=== PATIENT | female | born 1950 | race Caucasian/White ===

== ENCOUNTER 2017-05-20 17:02 | Emergency (ER) | payer MEDICARE ==
[~2017-05-20 17:02] MED LIST: Sodium Chloride 0.9% 1,000 ML BAG ONE; Sodium Chloride 0.9% 100 ML BAG ONE
[2017-05-20] MEDS ORDERED: Ibuprofen 600 MG TAB ONE ×2 (17:32→17:36)
[2017-05-20 17:55] LABS: #Eosinphils 0.1 thou/uL (0.0-0.7); #Lymphocytes 1.6 thou/uL (1.20-3.40); #Monocytes 1.6 thou/uL (0.11-0.59); %Basophils 0.3 % (0.0-1.0); %Eosinophils 0.6 % (0.0-10.0); %Lymphocytes 9.2 % (21.0-51.0); %Monocytes 9.3 % (0.0-10.0); %Neutrophils 80.6 % (42.0-75.0); Hemoglobin 13.1 g/dL (12.0-16.0); Mean Corpuscular HGB CONC 31.3 g/dL (32.0-36.0); Mean Corpuscular Hemoglobin 29.3 pg (27.0-31.0); Mean Corpuscular Volume 93.5 fl (81.0-99.0); Mean Platelet Volume 7.1 fL (7.4-10.4); Platelet Count 261 thou/uL (130-400); RBC Distribution Width 12.9 % (11.5-14.5); Red Blood Cell (RBC) Count 4.47 mill/uL (4.20-5.40); White Blood Cell (WBC) Count 17.4 thou/uL (4.8-10.8)
[2017-05-20 18:08] LABS: ALT (SGPT) 25 U/L (8-55); AST (SGOT) 23 U/L (5-34); Albumin 3.9 g/dL (3.4-4.8); Alkaline Phosphatase 95 U/L (40-150); Anion Gap 18 mmol/L (10-20); BUN (Urea Nitrogen) 15 mg/dL (9.8-20.1); Bilirubin, Total 0.4 mg/dL (0.2-1.2); Calc. Creatinine Clearance 0 mL/min (70-130); Calcium 10.5 mg/dL (7.8-10.44); Carbon Dioxide 22 mmol/L (23-31); Chloride 99 mmol/L (98-107); Estimated GFR-MDRD 70; Globulin 4.1 g/dL (2.4-3.5); Glucose 128 mg/dL (80-115); Potassium 3.7 mmol/L (3.5-5.1); Sodium 135 mmol/L (136-145)
[2017-05-20] MEDS ORDERED: cefTRIAXone\\ROCEPHIN 1 GM VIAL ONE (18:15)
[2017-05-20] MEDS ORDERED: Azithromycin 500 MG VIAL ONE (18:15)
--- NOTE | 2017-05-20 18:43 | RAD ---
RADIOGRAPH CHEST 2 VIEWS: Date: 05/20/17 Time: 5:23 p.m. HISTORY: 66-year-old female with acute dyspnea. COMPARISON: 10/19/14 FINDINGS: There is a new finding of irregular air space densities in the left upper lobe with heterogeneous at tenuation. Uncertain whether or not there is cavitation. Again noted is the hyperinflation consisten t with COPD. No pleural effusion or pneumothorax. Narrowing of the cardiomediastinal silhouette by the hyperinflation. IMPRESSION: 1. Left upper lobe pneumonia. It is uncertain whether this is due to conventional bacteria or t uberculosis. 2. Emphysema. BRIONNA [] POS: SHELBY
[2017-05-20 18:54] LABS: CKMB 1.1 ng/mL (0-6.6); Troponin I Less than 0.010 ng/mL (< 0.028)
== END 2017-05-20 21:50 | disposition home or self-care (01) ==
LOC: MADERS 17:02
DX: J44.0 Chronic obstructive pulmonary disease with (acute) lower respiratory infection (principal); J18.9 Pneumonia, unspecified organism; E78.5 Hyperlipidemia, unspecified; Z87.891 Personal history of nicotine dependence; Z79.82 Long term (current) use of aspirin; Z79.891 Long term (current) use of opiate analgesic; Z79.899 Other long term (current) drug therapy
CPT/HCPCS: 71020; 80053; 82553; 83605; 83880; 84484; 85025; 87040; 93005; 96365; 96367; J0456; J0696; J7050

== ENCOUNTER 2017-09-17 06:26 | Emergency (ER) | payer MEDICARE ==
[2017-09-17] MEDS ORDERED: Fentanyl 100 MCG/2 ML VIAL ONE ×2 (07:01→08:55)
[2017-09-17] MEDS ORDERED: Ondansetron HCl/PF 4 MG/2 ML Vial ONE (07:02)
[2017-09-17] MEDS ORDERED: Cefepime 1 GM VIAL ONE (07:02)
[2017-09-17 07:29] LABS: Bilirubin Negative (Negative); Blood, Urine Negative (Negative); Clarity Clear (Clear); Glucose, Urine (Dipstick) Negative (Negative); Leukocyte Negative (Negative); Nitrite Negative (Negative); Protein, Urine (Dipstick) Negative (Neg-Trace); Urobilinogen 0.2 mg/dL (0.2-1.0); pH, Urine 6.5 (5.0-9.0)
[2017-09-17 07:40] LABS: ALT (SGPT) 28 U/L (8-55); AST (SGOT) 28 U/L (5-34); Albumin 3.9 g/dL (3.4-4.8); Alkaline Phosphatase 60 U/L (40-150); Anion Gap 18 mmol/L (10-20); BUN (Urea Nitrogen) 12 mg/dL (9.8-20.1); Bilirubin, Total 0.2 mg/dL (0.2-1.2); Calc. Creatinine Clearance 0 mL/min (70-130); Calcium 8.7 mg/dL (7.8-10.44); Carbon Dioxide 23 mmol/L (23-31); Chloride 103 mmol/L (98-107); Estimated GFR-MDRD 78; Globulin 2.6 g/dL (2.4-3.5); Glucose 133 mg/dL (80-115); Lipase 15 U/L (8-78); Potassium 3.7 mmol/L (3.5-5.1); Protein, Total 6.5 g/dL (6.0-8.3); Sodium 140 mmol/L (136-145)
--- NOTE | 2017-09-17 09:21 | CT ---
CT OF THE ABDOMEN AND PELVIS WITH IV AND ORAL CONTRAST: Date: 09-17-17 Provided Clinical History: Right lower quadrant pain. FINDINGS: The visualized lung bases are free of significant opacity. Simple appearing cysts are seen involving the left kidney and liver with additional hypodensities inv olving the liver and right kidney, too small to definitely characterize, but likely also reflecting c ysts. There is a right inguinal hernia containing a loop of nondilated small bowel. There is no evidence fo r associated small bowel obstruction. There is no inflammatory fat stranding, free fluid, or free air apparent. There is no evidence for re gional lymph node enlargement. There is a 3.6 cm cystic structure in the right hemipelvis which is incompletely characterized on the basis of this study and may be adnexal in origin. The uterus is not visualized and presumed surgical ly absent. The appendix appears normal. There is conspicuous atherosclerotic vascular calcification including conspicuous calcification of th e abdominal aorta in the region of the renal artery origin that focally narrows the abdominal aorta b y about one-half its normal diameter. The osseous structures demonstrate no concerning osteoblastic or osteolytic lesions. IMPRESSION: 1. Right inguinal hernia containing nondilated small bowel. 2. Incompletely characterized right naina-pelvic cystic structure for which correlation with nonemerge nt pelvic ultrasound is recommended. 3. Atherosclerosis as described above. POS: SHELBY
[2017-09-17 09:59] LABS: #Basophils 0.1 thou/uL (0.0-0.2); #Eosinphils 0.2 thou/uL (0.0-0.7); #Lymphocytes 3.5 thou/uL (1.20-3.40); #Monocytes 0.9 thou/uL (0.11-0.59); #Neutrophils 8.1 thou/uL (1.40-6.50); %Basophils 0.7 % (0.0-1.0); %Eosinophils 1.9 % (0.0-10.0); %Lymphocytes 27.5 % (21.0-51.0); %Monocytes 6.8 % (0.0-10.0); %Neutrophils 63.1 % (42.0-75.0); Hemoglobin 12.7 g/dL (12.0-16.0); Mean Corpuscular HGB CONC 30.6 g/dL (32.0-36.0); Mean Corpuscular Hemoglobin 29.4 pg (27.0-31.0); Mean Corpuscular Volume 95.8 fl (81.0-99.0); Platelet Count 259 thou/uL (130-400); RBC Distribution Width 14.3 % (11.5-14.5); Red Blood Cell (RBC) Count 4.33 mill/uL (4.20-5.40); White Blood Cell (WBC) Count 12.8 thou/uL (4.8-10.8)
[2017-09-17] MEDS ORDERED: Iopamidol 370 76% 100 ML VIAL ONE (10:31)
[2017-09-17] MEDS ORDERED: Morphine 4 MG/ML VIAL ONE (11:23)
[2017-09-17] MEDS ORDERED: Sodium Chloride 0.9% 100 ML BAG ONE (13:59)
[2017-09-17] MEDS ORDERED: Sodium Chloride 0.9% 1,000 ML BAG ONE (13:59)
== END 2017-09-17 11:27 | disposition short-term general hospital (02) ==
LOC: MADERS 06:26
DX: K40.30 Unilateral inguinal hernia, with obstruction, without gangrene, not specified as recurrent (principal); J44.9 Chronic obstructive pulmonary disease, unspecified; E78.5 Hyperlipidemia, unspecified; J45.909 Unspecified asthma, uncomplicated; Z87.891 Personal history of nicotine dependence; Z79.891 Long term (current) use of opiate analgesic; Z79.899 Other long term (current) drug therapy
CPT/HCPCS: 74177; 80053; 81003; 83605; 83690; 85025; 96361; 96365; 96375; 96376; J0692; J2270; J2405; J3010; J7050

== ENCOUNTER 2018-11-26 14:35 | Outpatient (CLI) | payer MEDICARE ==
--- NOTE | 2018-11-26 15:41 | RAD ---
CERVICAL SPINE SERIES 3 VIEWS: HISTORY: Neck pain. History of neck surgery. Postoperative laminectomy changes and bilateral facet screw placement is noted at C3, C4, C5, C6, and C7. There is disk narrowing most pronounced at C5-6 and C6-7. There is a minimal anterolysis of C4 on C5 of approximately 4 mm. There is no soft tissue swelling. IMPRESSION: Arthritic changes and postop changes of the spine. POS: [facility]
== END 2018-11-26 14:36 | disposition home or self-care (01) ==
LOC: MADRAD 14:35
PROVIDERS: ATTEND Orthopaedic Surgery
DX: M54.2 Cervicalgia (principal); M47.812 Spondylosis without myelopathy or radiculopathy, cervical region; Z98.890 Other specified postprocedural states
CPT/HCPCS: 72040

== ENCOUNTER 2020-01-25 09:03 | Outpatient (CLI) | payer MEDICARE ==
--- NOTE | 2020-01-25 10:24 | RAD ---
PA AND LATERAL VIEWS CHEST: Date: 01/25/2020 HISTORY: Dyspnea. COMPARISON: 05/20/2017. FINDINGS: The heart size is normal. The lungs are well expanded. The aorta is tortuous. There is nodular promin ence in the left hilum. No focal areas of consolidation, pneumothoraces, or pleural effusions are see n. There are postop changes in the lower cervical spine. IMPRESSION: 1. No evidence of acute process. 2. Probable mass in the left hilar region. Further evaluation with contrast enhanced CT scan is brady mmended. CODE T.
== END 2020-01-25 09:04 | disposition home or self-care (01) ==
LOC: MADRAD 09:03
PROVIDERS: ATTEND Internal Medicine Critical Care Medicine
DX: R06.00 Dyspnea, unspecified (principal)
CPT/HCPCS: 71046

== ENCOUNTER 2020-09-29 11:22 | Emergency (ER) | payer MEDICARE ==
[~2020-09-29 11:22] MED LIST changes: -Sodium Chloride 0.9% 1,000 ML BAG ONE; -Sodium Chloride 0.9% 100 ML BAG ONE; +Sodium Chloride 0.9% 500 ML BAG ONE
[2020-09-29] MEDS ORDERED: methylPREDNISolone Sod Succ/PF 125 MG/2 ML VIAL ONE (11:38)
--- NOTE | 2020-09-29 11:52 | RAD ---
XR Chest 1 View Portable HISTORY: Dyspnea COMPARISON: 09/25/2020 FINDINGS: The heart size is normal. The aorta is tortuous. The lungs are well expanded without focal areas of consolidation, pneumothorax or pleural effusions. Mild chronic changes again seen. IMPRESSION: No radiographic evidence of acute cardiopulmonary process.
[2020-09-29 12:38] LABS: ALT (SGPT) 23 U/L (8-55); AST (SGOT) 26 U/L (5-34); Alkaline Phosphatase 46 U/L (40-110); Anion Gap 17 mmol/L (10-20); BUN (Urea Nitrogen) 11 mg/dL (9.8-20.1); Bilirubin, Total 0.3 mg/dL (0.2-1.2); Calc. Creatinine Clearance 0 mL/min (70-130); Carbon Dioxide 34 mmol/L (23-31); Globulin 2.6 g/dL (2.4-3.5); Glucose 124 mg/dL (80-115); Protein, Total 6.6 g/dL (6.0-8.3)
[2020-09-29 12:43] LABS: Hemoglobin 12.5 g/dL (12.0-16.0); Mean Corpuscular HGB CONC 29.9 g/dL (32.0-36.0); Mean Corpuscular Hemoglobin 30.3 pg (27.0-31.0); Mean Platelet Volume 6.5 fL (7.4-10.4); Platelet Count 206 thou/uL (130-400); RBC Distribution Width 13.1 % (11.5-14.5); White Blood Cell (WBC) Count 9.8 thou/uL (4.8-10.8)
[2020-09-29 12:44] LABS: #Basophils 0.1 thou/uL (0.0-0.2); #Eosinphils 0.1 thou/uL (0.0-0.7); #Lymphocytes 1.9 thou/uL (1.20-3.40); #Monocytes 1.4 thou/uL (0.11-0.59); #Neutrophils 6.2 thou/uL (1.40-6.50); %Basophils 1.4 % (0.0-1.0); %Eosinophils 1.1 % (0.0-10.0); %Lymphocytes 19.7 % (21.0-51.0); %Monocytes 14.4 % (0.0-10.0); %Neutrophils 63.4 % (42.0-75.0)
[2020-09-29 12:45] LABS: Chloride 96 mmol/L (98-107); Potassium 3.3 mmol/L (3.5-5.1); Sodium 144 mmol/L (136-145)
[2020-09-29 12:50] LABS: Anisocytosis SLIGHT = 6-15 cells (100X) (0-5/hpf); Macrocytosis SLIGHT = 6-15 cells (100X) (0-5/hpf)
[2020-09-29 12:51] LABS: Platelet Morphology Comment Appears Adequate
[2020-09-29] MEDS ORDERED: Potassium Chloride 20 MEQ TAB ONE (13:02)
[2020-09-29] MEDS ORDERED: Ibuprofen 400 MG TAB ONE (13:10)
[2020-09-29] MEDS ORDERED: Doxycycline Hyclate 100 MG VIAL ONE (13:10)
[2020-09-29] MEDS ORDERED: Doxycycline 100 MG CAP ONE (13:11)
[2020-09-29] MEDS ORDERED: Sodium Chloride 0.9% 500 ML ONE (13:11)
== END 2020-09-29 15:00 | disposition home or self-care (01) ==
LOC: MADERS 11:22
DX: J44.1 Chronic obstructive pulmonary disease with (acute) exacerbation (principal); E87.6 Hypokalemia; E78.5 Hyperlipidemia, unspecified; E78.00 Pure hypercholesterolemia, unspecified; Z87.891 Personal history of nicotine dependence; Z79.899 Other long term (current) drug therapy
CPT/HCPCS: 36415; 71045; 80053; 83605; 83880; 84484; 85025; 87040; 93005; 96374; J2930; J7030; J7620

== ENCOUNTER 2020-10-01 19:57 | Emergency (ER) | payer SELFPAY ==
[2020-10-01] MEDS ORDERED: Acetaminophen 325 MG TAB ONE (20:08)
[2020-10-01] MEDS ORDERED: Sodium Chloride 0.9% 1,000 ML ONE (20:30)
[2020-10-01 20:32] LABS: #Basophils 0.1 thou/uL (0.0-0.2); #Lymphocytes 1.7 thou/uL (1.20-3.40); #Monocytes 1.2 thou/uL (0.11-0.59); %Basophils 1.2 % (0.0-1.0); %Eosinophils 0.4 % (0.0-10.0); %Lymphocytes 16.7 % (21.0-51.0); %Monocytes 12.2 % (0.0-10.0); %Neutrophils 69.5 % (42.0-75.0); Hemoglobin 12.5 g/dL (12.0-16.0); Mean Corpuscular HGB CONC 31.7 g/dL (32.0-36.0); Mean Corpuscular Hemoglobin 30.8 pg (27.0-31.0); Mean Corpuscular Volume 97.4 fL (78.0-98.0); Mean Platelet Volume 6.6 fL (7.4-10.4); Platelet Count 229 thou/uL (130-400); Red Blood Cell (RBC) Count 4.06 mill/uL (4.20-5.40)
[2020-10-01 20:44] LABS: ALT (SGPT) 34 U/L (8-55); AST (SGOT) 46 U/L (5-34); Albumin 4.1 g/dL (3.4-4.8); Alkaline Phosphatase 50 U/L (40-110); Anion Gap 19 mmol/L (10-20); BUN (Urea Nitrogen) 13 mg/dL (9.8-20.1); Bilirubin, Total 0.2 mg/dL (0.2-1.2); Calc. Creatinine Clearance 0 mL/min (70-130); Carbon Dioxide 28 mmol/L (23-31); Chloride 94 mmol/L (98-107); Globulin 2.5 g/dL (2.4-3.5); Glucose 83 mg/dL (80-115); Protein, Total 6.6 g/dL (6.0-8.3); Sodium 137 mmol/L (136-145)
--- NOTE | 2020-10-01 20:47 | RAD ---
CHEST TWO VIEWS: History: Cough, fever. Comparison: 09-25-2020 FINDINGS: Heart size within normal limits. There are atherosclerotic changes of the aorta. Lungs are clear of a ny infiltrates. Some hyperexpansion and flattening to the hemidiaphragm is a stable finding. IMPRESSION: No active intrathoracic disease. POS: KAREN
[2020-10-01] MEDS ORDERED: Sodium Chloride 0.9% 100 ML ONE ×2 (21:03→21:23)
[2020-10-01] MEDS ORDERED: cefTRIAXone\\ROCEPHIN 2 GM VIAL ONE (21:03)
[2020-10-01] MEDS ORDERED: Sodium Chloride 0.9% 250 ML 500 ML ONE (21:23)
[2020-10-01] MEDS ORDERED: Azithromycin 500 MG VIAL ONE (21:23)
[2020-10-01 21:38] LABS: SARS-CoV-2 NAA Rapid Test DETECTED (NotDetected)
[2020-10-01 21:44] LABS: Bilirubin Small (Negative); Blood, Urine Negative (Negative); Clarity Cloudy (Clear); Glucose, Urine (Dipstick) Negative (Negative); Ketone, Urine Trace mg/dL (Negative); Leukocyte Negative (Negative); Nitrite Negative (Negative); Protein, Urine (Dipstick) 30 mg/dL (Neg-Trace); pH, Urine 8.5 (5.0-9.0)
[2020-10-01 21:51] LABS: Bacteria/HPF Rare-Few HPF (None Seen); RBC/HPF None Seen HPF (0-3); Squamous Epithelial 0-3 HPF (0-3); WBC/HPF 0-3 HPF (0-3)
[2020-10-01] MEDS ORDERED: Ibuprofen 400 MG TAB ONE (22:02)
[2020-10-01] MEDS ORDERED: Enoxaparin Sodium 40 MG/0.4 ML SYRINGE ONE (22:46)
== END 2020-10-01 23:04 | disposition short-term general hospital (02) ==
LOC: MADERS 19:57
DX: U07.1 COVID-19 (principal); J44.9 Chronic obstructive pulmonary disease, unspecified; Z99.81 Dependence on supplemental oxygen; E78.5 Hyperlipidemia, unspecified; E78.00 Pure hypercholesterolemia, unspecified; Z87.891 Personal history of nicotine dependence; Z79.899 Other long term (current) drug therapy
CPT/HCPCS: 0240U; 71046; 80053; 81003; 81015; 83605; 83880; 84484; 85025; 87040; J0456; J0696; J1650; J3490; J7050

== ENCOUNTER 2021-01-14 19:47 | Emergency (ER) | payer MEDICARE ==
[2021-01-14 20:22] LABS: Hemoglobin 11.1 g/dL (12.0-16.0); Mean Corpuscular Hemoglobin 29.9 pg (27.0-31.0); Mean Corpuscular Volume 102.9 fL (78.0-98.0); Mean Platelet Volume 7.6 fL (7.4-10.4); Platelet Count 183 thou/uL (130-400); RBC Distribution Width 16.1 % (11.5-14.5); Red Blood Cell (RBC) Count 3.71 mill/uL (4.20-5.40); White Blood Cell (WBC) Count 8.8 thou/uL (4.8-10.8)
[2021-01-14] MEDS ORDERED: Nitroglycerin 2% Ointment 1 INCH/1 GM Packet ONE (20:31)
[2021-01-14 20:35] LABS: Eosinophils 2 % (0-10); Lymphocytes 13 % (21-51); MDiff Complete? YES; Monocytes 6 % (0-10); Neutrophil 79 % (42-75); Platelet Morphology Comment Appears Adequate; RBC Morphology Normal
[2021-01-14 20:36] LABS: ALT (SGPT) 22 U/L (8-55); AST (SGOT) 27 U/L (5-34); Albumin 4.3 g/dL (3.4-4.8); Alkaline Phosphatase 51 U/L (40-110); Anion Gap 17 mmol/L (10-20); BUN (Urea Nitrogen) 15 mg/dL (9.8-20.1); Bilirubin, Total 0.2 mg/dL (0.2-1.2); Calc. Creatinine Clearance 0 mL/min (70-130); Calcium 9.2 mg/dL (7.8-10.44); Carbon Dioxide 35 mmol/L (23-31); Chloride 97 mmol/L (98-107); Globulin 2.1 g/dL (2.4-3.5); Glucose 151 mg/dL (80-115); Lipase 41 U/L (8-78); Potassium 4.2 mmol/L (3.5-5.1); Protein, Total 6.4 g/dL (5.8-8.1); Sodium 145 mmol/L (136-145)
[2021-01-14] MEDS ORDERED: Morphine 2 MG/ML VIAL ONE (20:53)
== END 2021-01-14 22:04 | disposition short-term general hospital (02) ==
LOC: MADERS 19:47
DX: R07.89 Other chest pain (principal); J44.9 Chronic obstructive pulmonary disease, unspecified; E78.5 Hyperlipidemia, unspecified; E78.00 Pure hypercholesterolemia, unspecified; Z86.16 Personal history of COVID-19; Z87.891 Personal history of nicotine dependence; Z79.899 Other long term (current) drug therapy; Z79.82 Long term (current) use of aspirin; Z99.81 Dependence on supplemental oxygen; Z79.891 Long term (current) use of opiate analgesic
CPT/HCPCS: 71045; 80053; 83690; 84484; 85025; 93005; 94760; J2270; 96374

== ENCOUNTER 2021-02-09 10:49 | Emergency (ER) | payer MEDICARE ==
[~2021-02-09 10:49] MED LIST changes: +Sodium Chloride 0.9% 100 ML BAG ONE; -Sodium Chloride 0.9% 500 ML BAG ONE
[2021-02-09 11:20] LABS: #Eosinphils 0.1 thou/uL (0.0-0.7); #Lymphocytes 0.9 thou/uL (1.20-3.40); #Monocytes 0.2 thou/uL (0.11-0.59); #Neutrophils 10.4 thou/uL (1.40-6.50); %Basophils 0.4 % (0.0-1.0); %Eosinophils 0.6 % (0.0-10.0); %Lymphocytes 7.9 % (21.0-51.0); Hemoglobin 11.8 g/dL (12.0-16.0); Mean Corpuscular HGB CONC 29.2 g/dL (32.0-36.0); Mean Corpuscular Volume 103.1 fL (78.0-98.0); Mean Platelet Volume 7.6 fL (7.4-10.4); Platelet Count 200 thou/uL (130-400); RBC Distribution Width 15.6 % (11.5-14.5); Red Blood Cell (RBC) Count 3.92 mill/uL (4.20-5.40); White Blood Cell (WBC) Count 11.6 thou/uL (4.8-10.8)
[2021-02-09 11:33] LABS: ALT (SGPT) 23 U/L (8-55); AST (SGOT) 28 U/L (5-34); Albumin 4.3 g/dL (3.4-4.8); Alkaline Phosphatase 61 U/L (40-110); Anion Gap 14 mmol/L (10-20); BUN (Urea Nitrogen) 19 mg/dL (9.8-20.1); Bilirubin, Total 0.2 mg/dL (0.2-1.2); Calc. Creatinine Clearance 0 mL/min (70-130); Calcium 9.3 mg/dL (7.8-10.44); Carbon Dioxide 36 mmol/L (23-31); Chloride 98 mmol/L (98-107); Globulin 2.4 g/dL (2.4-3.5); Glucose 117 mg/dL (80-115); Potassium 4.1 mmol/L (3.5-5.1); Protein, Total 6.7 g/dL (5.8-8.1); Sodium 144 mmol/L (136-145)
[2021-02-09] MEDS ORDERED: Iopamidol 370 76% 125 ML VIAL FS ONE (13:09)
== END 2021-02-09 13:34 | disposition home or self-care (01) ==
LOC: MADERS 10:49
DX: R07.89 Other chest pain (principal); M54.9 Dorsalgia, unspecified; E78.5 Hyperlipidemia, unspecified; E78.00 Pure hypercholesterolemia, unspecified; J44.9 Chronic obstructive pulmonary disease, unspecified; Z87.891 Personal history of nicotine dependence; Z79.51 Long term (current) use of inhaled steroids; Z79.899 Other long term (current) drug therapy
CPT/HCPCS: 71045; 71275; 74174; 80053; 83690; 83880; 84484; 85025; 93005; J3490; Q9967

== ENCOUNTER 2021-03-20 20:20 | Emergency (ER) | payer MEDICARE ==
[2021-03-20 21:20] LABS: ALT (SGPT) 27 U/L (8-55); AST (SGOT) 20 U/L (5-34); Albumin 3.9 g/dL (3.4-4.8); Alkaline Phosphatase 55 U/L (40-110); Anion Gap 15 mmol/L (10-20); BUN (Urea Nitrogen) 21 mg/dL (9.8-20.1); Bilirubin, Total 0.2 mg/dL (0.2-1.2); CK (CPK) 79 U/L (29-168); CRP (Inflammatory) Less than 0.50 mg/dL (= or < 0.5); Calc. Creatinine Clearance 0 mL/min (70-130); Calcium 9.4 mg/dL (7.8-10.44); Carbon Dioxide 37 mmol/L (23-31); Globulin 2.2 g/dL (2.4-3.5); Glucose 82 mg/dL (80-115); Protein, Total 6.1 g/dL (5.8-8.1)
[2021-03-20 21:26] LABS: #Eosinphils 0.1 thou/uL (0.0-0.7); #Lymphocytes 1.3 thou/uL (1.20-3.40); #Monocytes 0.8 thou/uL (0.11-0.59); #Neutrophils 6.3 thou/uL (1.40-6.50); %Basophils 0.4 % (0.0-1.0); %Eosinophils 1.2 % (0.0-10.0); %Monocytes 9.1 % (0.0-10.0); %Neutrophils 74.2 % (42.0-75.0); Hemoglobin 10.4 g/dL (12.0-16.0); Mean Corpuscular HGB CONC 28.1 g/dL (32.0-36.0); Mean Corpuscular Hemoglobin 28.9 pg (27.0-31.0); Mean Platelet Volume 6.8 fL (7.4-10.4); Platelet Count 187 thou/uL (130-400); RBC Distribution Width 15.1 % (11.5-14.5); Red Blood Cell (RBC) Count 3.59 mill/uL (4.20-5.40); White Blood Cell (WBC) Count 8.5 thou/uL (4.8-10.8)
[2021-03-20 21:27] LABS: MDiff Complete? YES; Macrocytosis SLIGHT = 6-15 cells (100X) (0-5/hpf); Platelet Morphology Comment Appears Adequate
[2021-03-20 21:28] LABS: Chloride 98 mmol/L (98-107); Potassium 3.7 mmol/L (3.5-5.1); Sodium 146 mmol/L (136-145)
[2021-03-20 21:31] LABS: Bilirubin Negative (Negative); Blood, Urine Negative (Negative); Clarity Clear (Clear); Glucose, Urine (Dipstick) Negative (Negative); Ketone, Urine Negative (Negative); Leukocyte Negative (Negative); Nitrite Negative (Negative); Protein, Urine (Dipstick) Negative (Neg-Trace); Urobilinogen 0.2 mg/dL (Less than 2)
[2021-03-20] MEDS ORDERED: traMADol HCl 50 MG TAB ONE (22:20)
== END 2021-03-20 22:23 | disposition home or self-care (01) ==
LOC: MADERS 20:20
DX: S20.211A Contusion of right front wall of thorax, initial encounter (principal); S20.212A Contusion of left front wall of thorax, initial encounter; J43.9 Emphysema, unspecified; R10.13 Epigastric pain; R53.1 Weakness; E78.5 Hyperlipidemia, unspecified; K21.9 Gastro-esophageal reflux disease without esophagitis; E78.00 Pure hypercholesterolemia, unspecified; Z87.891 Personal history of nicotine dependence; Z79.82 Long term (current) use of aspirin; Z79.899 Other long term (current) drug therapy; Z79.891 Long term (current) use of opiate analgesic; W01.198A Fall on same level from slipping, tripping and stumbling with subsequent striking against other object, initial encounter
CPT/HCPCS: 36415; 74022; 80053; 81003; 82150; 82550; 83690; 84484; 85025; 86140; 93005

== ENCOUNTER 2021-05-23 02:32 | Emergency (ER) | payer MEDICARE ==
[2021-05-23] MEDS ORDERED: Sodium Chloride 0.9% 100 ML ONE (02:57)
[2021-05-23] MEDS ORDERED: methylPREDNISolone Sod Succ/PF 125 MG/2 ML VIAL ONE (02:57)
[2021-05-23] MEDS ORDERED: cefTRIAXone\\ROCEPHIN 1 GM VIAL ONE (02:57)
[2021-05-23] MEDS ORDERED: Albuterol Sulfate 2.5 mg/0.5 ml Neb ONE (03:00)
[2021-05-23 03:20] LABS: Band 2 % (5-11); Hemoglobin 12.4 g/dL (12.0-16.0); Lymphocytes 13 % (21-51); MDiff Complete? YES; Macrocytosis SLIGHT = 6-15 cells (100X) (0-5/hpf); Mean Corpuscular HGB CONC 28.7 g/dL (32.0-36.0); Mean Corpuscular Hemoglobin 30.2 pg (27.0-31.0); Mean Corpuscular Volume 105.3 fL (78.0-98.0); Mean Platelet Volume 7.1 fL (7.4-10.4); Monocytes 11 % (0-10); Neutrophil 74 % (42-75); Platelet Count 167 thou/uL (130-400); Platelet Morphology Comment Appears Adequate; RBC Distribution Width 13.7 % (11.5-14.5); Stomatocytes MODERATE= 6-15 cells (100X) (0-1/hpf)
[2021-05-23] MEDS ORDERED: Acetaminophen 650 MG Suppository ONE (03:27)
[2021-05-23 03:28] LABS: ALT (SGPT) 23 U/L (8-55); AST (SGOT) 25 U/L (5-34); Albumin 4.2 g/dL (3.4-4.8); Alkaline Phosphatase 52 U/L (40-110); Anion Gap 14 mmol/L (10-20); BUN (Urea Nitrogen) 13 mg/dL (9.8-20.1); Bilirubin, Total 0.4 mg/dL (0.2-1.2); Calc. Creatinine Clearance 0 mL/min (70-130); Calcium 11.4 mg/dL (7.8-10.44); Carbon Dioxide 39 mmol/L (23-31); Globulin 2.4 g/dL (2.4-3.5); Glucose 119 mg/dL (80-115); Protein, Total 6.6 g/dL (5.8-8.1)
[2021-05-23 03:36] LABS: Chloride 94 mmol/L (98-107); Potassium 3.5 mmol/L (3.5-5.1); Sodium 144 mmol/L (136-145)
[2021-05-23 03:41] LABS: Base Excess-Venous 10.6 mmol/L (-2.0 to 3.0); Bicarbonate (HCO3v) 40.2 mmol/L (22.0-28.0); CO2 Tension (PvCO2) 77.9 mmHg (42.0-51.0); Calcium, Ionized 1.39 mmol/L (1.15-1.33); Chloride 93 mmol/L (98-107); Potassium 3.4 mmol/L (3.5-5.1); Sodium 145 mmol/L (138-145); T. Carbon Dioxide 42.6 mmol/L (22.0-28.0); vO2 Saturation-calc 99.6 % (60.0-85.0)
[2021-05-23] MEDS ORDERED: Sodium Chloride 0.9% 500 ML ONE (04:12)
[2021-05-23 04:37] LABS: SARS-CoV-2 NAA Rapid Test Not Detected (NotDetected)
[2021-05-23 04:47] LABS: Bilirubin Negative (Negative); Blood, Urine Trace (Negative); Clarity Clear (Clear); Glucose, Urine (Dipstick) Negative (Negative); Ketone, Urine Negative (Negative); Leukocyte Negative (Negative); Nitrite Negative (Negative); Protein, Urine (Dipstick) Negative (Neg-Trace); Specific Gravity, Urine 1.025 (1.005-1.030); Urobilinogen 0.2 mg/dL (Less than 2)
[2021-05-23 04:56] LABS: RBC/HPF None Seen HPF (0-3)
[2021-05-23 04:57] LABS: Bacteria/HPF 1+ HPF (None Seen); Squamous Epithelial 0-3 HPF (0-3); WBC/HPF None Seen HPF (0-3)
[2021-05-23] MEDS ORDERED: Ibuprofen 400 MG TAB ONE (05:42)
[2021-05-23] MEDS ORDERED: Ibuprofen 200 MG TAB ONE (15:14)
== END 2021-05-23 17:17 | disposition short-term general hospital (02) ==
LOC: MADERS 02:32
DX: J44.1 Chronic obstructive pulmonary disease with (acute) exacerbation (principal); R50.9 Fever, unspecified; Z20.822 Contact with and (suspected) exposure to COVID-19; K21.9 Gastro-esophageal reflux disease without esophagitis; E78.5 Hyperlipidemia, unspecified; E78.00 Pure hypercholesterolemia, unspecified; Z87.891 Personal history of nicotine dependence; Z79.52 Long term (current) use of systemic steroids; Z79.899 Other long term (current) drug therapy; Z79.51 Long term (current) use of inhaled steroids; Z79.82 Long term (current) use of aspirin
CPT/HCPCS: 36415; 71045; 71250; 74177; 80053; 81003; 81015; 82330; 82803; 83605; 83880; 84484; 85025; 87040; 87086; 93005; 96365; 96375; J0696; J2930; J3490; J7030; J7611; J7620; U0002

== ENCOUNTER 2021-08-04 12:59 | Emergency (ER) | payer MEDICARE | END 2021-08-04 13:50 | disposition home or self-care (01) | LOC: MADERS 12:59 | DX: J44.9 Chronic obstructive pulmonary disease, unspecified (principal); Z86.16 Personal history of COVID-19; Z99.81 Dependence on supplemental oxygen | CPT/HCPCS: 99283 ==

== ENCOUNTER 2021-08-15 11:51 | Emergency (ER) | payer MEDICARE | END 2021-08-15 14:35 | disposition home or self-care (01) | LOC: MADERS 11:51 | DX: R13.10 Dysphagia, unspecified (principal); K21.9 Gastro-esophageal reflux disease without esophagitis; E78.5 Hyperlipidemia, unspecified; J44.9 Chronic obstructive pulmonary disease, unspecified; G43.909 Migraine, unspecified, not intractable, without status migrainosus; Z87.891 Personal history of nicotine dependence; Z79.899 Other long term (current) drug therapy | CPT/HCPCS: 99284 ==

== ENCOUNTER 2021-09-15 16:43 | Emergency (ER) | payer MEDICARE ==
[2021-09-15 18:02] LABS: ALT (SGPT) 26 U/L (8-55); AST (SGOT) 30 U/L (5-34); Albumin 4.3 g/dL (3.4-4.8); Alkaline Phosphatase 42 U/L (40-110); Anion Gap 10 mmol/L (10-20); BUN (Urea Nitrogen) 10 mg/dL (9.8-20.1); Bilirubin, Total 0.2 mg/dL (0.2-1.2); Calc. Creatinine Clearance 0 mL/min (70-130); Calcium 10.8 mg/dL (7.8-10.44); Globulin 2.3 g/dL (2.4-3.5); Glucose 119 mg/dL (83-110); Protein, Total 6.6 g/dL (5.8-8.1)
[2021-09-15 18:09] LABS: Carbon Dioxide 36 mmol/L (23-31); Chloride 95 mmol/L (98-107); Potassium 3.8 mmol/L (3.5-5.1); Sodium 143 mmol/L (136-145)
[2021-09-15 18:12] LABS: #Lymphocytes 0.6 thou/uL (1.20-3.40); #Monocytes 0.5 thou/uL (0.11-0.59); #Neutrophils 6.1 thou/uL (1.40-6.50); %Basophils 0.3 % (0.0-1.0); %Eosinophils 0.1 % (0.0-10.0); %Lymphocytes 7.9 % (21.0-51.0); %Monocytes 6.3 % (0.0-10.0); %Neutrophils 85.4 % (42.0-75.0); Hemoglobin 11.4 g/dL (12.0-16.0); Hypochromia SLIGHT = 6-15 cells (100X) (0-5/hpf); MDiff Complete? YES; Mean Corpuscular Hemoglobin 29.1 pg (27.0-31.0); Mean Corpuscular Volume 100.3 fL (78.0-98.0); Mean Platelet Volume 6.3 fL (7.4-10.4); Platelet Count 238 thou/uL (130-400); Platelet Morphology Comment Appears Adequate; RBC Distribution Width 13.4 % (11.5-14.5); Red Blood Cell (RBC) Count 3.91 mill/uL (4.20-5.40); White Blood Cell (WBC) Count 7.1 thou/uL (4.8-10.8)
== END 2021-09-15 18:40 | disposition home or self-care (01) ==
LOC: MADERS 16:43
DX: M62.838 Other muscle spasm (principal); K21.9 Gastro-esophageal reflux disease without esophagitis; E78.5 Hyperlipidemia, unspecified; E78.00 Pure hypercholesterolemia, unspecified; J44.9 Chronic obstructive pulmonary disease, unspecified; G43.909 Migraine, unspecified, not intractable, without status migrainosus; Z86.16 Personal history of COVID-19; Z87.891 Personal history of nicotine dependence
CPT/HCPCS: 80053; 83735; 85025; 99283

== ENCOUNTER 2022-09-30 10:20 | Emergency (ER) | payer MEDICARE, OTHER ==
[~2022-09-30 10:20] MED LIST changes: +Iopamidol 370 76% 125 ML VIAL FS ONE
[2022-09-30] MEDS ORDERED: methylPREDNISolone Sod Succ/PF 125 MG/2 ML VIAL ONE (10:38)
[2022-09-30] MEDS ORDERED: Ipratropium/Albuterol 3 ML NEB ONE (10:38)
[2022-09-30 10:54] LABS: #Basophils 0.1 thou/uL (0.0-0.2); #Eosinphils 0.1 thou/uL (0.0-0.7); #Lymphocytes 0.9 thou/uL (1.20-3.40); #Monocytes 0.4 thou/uL (0.11-0.59); #Neutrophils 7.3 thou/uL (1.40-6.50); %Basophils 0.7 % (0.0-1.0); %Eosinophils 0.7 % (0.0-10.0); %Lymphocytes 10.7 % (21.0-51.0); %Monocytes 4.6 % (0.0-10.0); %Neutrophils 83.3 % (42.0-75.0); Hemoglobin 11.1 g/dL (12.0-16.0); Mean Corpuscular HGB CONC 30.6 g/dL (32.0-36.0); Mean Platelet Volume 7.1 fL (7.4-10.4); Platelet Count 206 10x3/uL (130-400); RBC Distribution Width 12.9 % (11.5-14.5); Red Blood Cell (RBC) Count 3.71 mill/uL (4.20-5.40); White Blood Cell (WBC) Count 8.8 10x3/uL (4.8-10.8)
[2022-09-30 11:10] LABS: Base Excess-Venous 6.7 mmol/L (-2.0 to 3.0); Bicarbonate (HCO3v) 33.5 mmol/L (22.0-28.0); CO2 Tension (PvCO2) 56.3 mmHg (42.0-51.0); Calcium, Ionized 1.05 mmol/L (1.15-1.33); Chloride 97 mmol/L (98-107); Hemoglobin - Calc 13.6 g/dL (12.0-16.0); Sodium 139 mmol/L (138-145); T. Carbon Dioxide 35.3 mmol/L (22.0-28.0); vO2 Saturation-calc 98.6 % (60.0-85.0)
[2022-09-30 11:15] LABS: ALT (SGPT) 29 U/L (8-55); AST (SGOT) 32 U/L (5-34); Alkaline Phosphatase 42 U/L (40-110); Anion Gap 15 mmol/L (10-20); BUN (Urea Nitrogen) 12 mg/dL (9.8-20.1); Bilirubin, Total 0.3 mg/dL (0.2-1.2); Calc. Creatinine Clearance 0 mL/min (70-130); Calcium 9.5 mg/dL (7.8-10.44); Carbon Dioxide 36 mmol/L (23-31); Chloride 96 mmol/L (98-107); Estimated GFR 76; Glucose 129 mg/dL (83-110); Magnesium 1.8 mg/dL (1.6-2.6); Potassium 3.6 mmol/L (3.5-5.1); Sodium 143 mmol/L (136-145)
[2022-09-30 11:16] LABS: Digoxin 0.87 ng/mL (0.8-2.0)
[2022-09-30] MEDS ORDERED: Sodium Chloride 0.9% 500 ML ONE (12:03)
[2022-09-30] MEDS ORDERED: Pantoprazole 40 MG VIAL ONE (12:38)
[2022-09-30] MEDS ORDERED: Mag-Al Plus 1200 MG/1200 MG/120 MG/30 ML UDCUP ONE (13:42)
[2022-09-30] MEDS ORDERED: Lidocaine Viscous Sol 2% 15 ml UD Cup ONE (13:42)
[2022-09-30 14:29] LABS: Troponin I Less than 0.010 ng/mL (< 0.028)
== END 2022-09-30 15:20 | disposition home or self-care (01) ==
LOC: MADERS 10:20
DX: J44.1 Chronic obstructive pulmonary disease with (acute) exacerbation (principal); K29.70 Gastritis, unspecified, without bleeding; K21.9 Gastro-esophageal reflux disease without esophagitis; E78.00 Pure hypercholesterolemia, unspecified; Z87.891 Personal history of nicotine dependence
CPT/HCPCS: 71275; 74177; 80053; 80162; 82330; 82803; 83735; 83880; 84484; 85025; 93005; 96365; 96375; C9113; J2930; J7030; J7611; J7620; Q9967